=== PATIENT | female | born 1975 | race Caucasian/White ===

== ENCOUNTER → 2020-04-23 | Outpatient (CLI) | payer MEDICARE, OTHER ==
[~2020-04-23] MED LIST: ALBUTEROL2.5 MG/3 M INH; BEVESPI INH; BUMETANIDE2 MG PO; BUPRENORPHIN-N1 EACH SL; CARBAMAZEPINE100 M1 PO; CELEXA40 MG PO; CLARITIN10 MG PO; CLINDAMYCIN HC300 MG PO; HYDROCODON-ACE1 EAC6 PO; IBUPROFEN800 MG PO; IPRATROPIU0.2 MG/1 M INH; LASIX20 MG PO; LEVAQUIN750 MG PO; MIRTAZAPINE45 MG PO; MORGIDOX100 MG PO; NEURONTIN400 MG PO; NICOTINE PATCH1 EAC2 TOP; PANTOPRAZOLE SO40 MG PO; POTASSIUM CHLO10 ME1 PO; POTASSIUM CHLO10 ME2 PO; PREDNISONE 20 M20 MG PO; PREDNISONE10 MG PO; REMERON30 MG PO; SPIRIVA RESPIMAT4 GM INH; SUBOXONE 8 MG-1 EACH SL; SULFAMETHOXAZO1 EACH PO; TEGRETOL 200 M200 MG PO; TESSALON PERLE100 MG PO; TOPAMAX200 MG PO; TOPAMAX50 MG PO; TORADOL 10 MG T10 MG PO; VENTOLIN HFA 66.7 GM INH; VITAMIN C500 M4 PO; VITAMIN D21250 MCG PO; WELLBUTRIN XL300 M1 PO
== END ==
LOC: KOH-I 14:33
DX: M25.572 Pain in left ankle and joints of left foot (principal); S82.302A Unspecified fracture of lower end of left tibia, initial encounter for closed fracture; S82.892A Other fracture of left lower leg, initial encounter for closed fracture; W19.XXXA Unspecified fall, initial encounter
CPT/HCPCS: 73610

== ENCOUNTER → 2020-04-29 | Day surgery (SDC) | payer MEDICARE, OTHER ==
[2020-04-29 13:57] LABS: HEMOGLOBIN 15.5 gm/dl (12.3-15.3); RED BLOOD COUNT 4.75 M/UL (4.00-5.10); WHITE BLOOD COUNT 16.4 K/UL (4.5-11.0)
[2020-04-29 14:16] LABS: BUN/CREATININE RATIO 9 (0-10)
== END | disposition home or self-care (01) ==
LOC: OR 13:17
PROVIDERS: Podiatrist Foot & Ankle Surgery
DX: S82.842A Displaced bimalleolar fracture of left lower leg, initial encounter for closed fracture (principal); J45.909 Unspecified asthma, uncomplicated; F41.8 Other specified anxiety disorders; K21.9 Gastro-esophageal reflux disease without esophagitis; F17.210 Nicotine dependence, cigarettes, uncomplicated; I10 Essential (primary) hypertension; R56.9 Unspecified convulsions; Z82.5 Family history of asthma and other chronic lower respiratory diseases; Z79.899 Other long term (current) drug therapy; W01.0XXA Fall on same level from slipping, tripping and stumbling without subsequent striking against object, initial encounter
CPT/HCPCS: 36415; 80048; 85027

== ENCOUNTER → 2020-05-05 | Outpatient (CLI) | payer MEDICARE, OTHER ==
[2020-05-05 12:39] LABS: HEMOGLOBIN 14.4 gm/dl (12.3-15.3); RED BLOOD COUNT 4.46 M/UL (4.00-5.10)
[2020-05-05 12:59] LABS: BUN/CREATININE RATIO 9 (0-10)
== END ==
LOC: OPSV2 11:30
PROVIDERS: Podiatrist Foot & Ankle Surgery
DX: Z01.818 Encounter for other preprocedural examination (principal)
CPT/HCPCS: 36415; 80048; 82652; 85027

== ENCOUNTER → 2020-05-06 | Day surgery (SDC) | payer MEDICARE, OTHER | END | disposition home or self-care (01) | LOC: OR 05-01 07:45 | DX: S82.842A Displaced bimalleolar fracture of left lower leg, initial encounter for closed fracture (principal); S93.422A Sprain of deltoid ligament of left ankle, initial encounter; S93.492A Sprain of other ligament of left ankle, initial encounter; M25.372 Other instability, left ankle; J44.9 Chronic obstructive pulmonary disease, unspecified; F41.9 Anxiety disorder, unspecified; F32.9 Major depressive disorder, single episode, unspecified; K21.9 Gastro-esophageal reflux disease without esophagitis; G43.909 Migraine, unspecified, not intractable, without status migrainosus; F17.210 Nicotine dependence, cigarettes, uncomplicated; Z79.899 Other long term (current) drug therapy; W01.0XXA Fall on same level from slipping, tripping and stumbling without subsequent striking against object, initial encounter | CPT/HCPCS: 73610; 76000; C1713; C1769; J0690; J2001; J2250; J2405; J2704; J2795; J3010; J3370; J7120; Q4133 ==

== ENCOUNTER → 2020-05-14 | Outpatient (CLI) | payer MEDICARE, OTHER | LOC: KOH-I 09:28 | DX: S82.892D Other fracture of left lower leg, subsequent encounter for closed fracture with routine healing (principal) | CPT/HCPCS: 73610 ==

== ENCOUNTER → 2020-05-25 | Outpatient (CLI) | payer MEDICARE, OTHER | LOC: KOH-I 14:09 | DX: S82.842A Displaced bimalleolar fracture of left lower leg, initial encounter for closed fracture (principal) | CPT/HCPCS: 73610 ==

== ENCOUNTER 2020-06-01 15:00 | Inpatient (IN) | payer MEDICARE, OTHER ==
[~2020-06-01] VITALS: Ht 160 cm; Wt 72.6 kg
[~2020-06-01 15:00] MED LIST changes: -CLINDAMYCIN HC300 MG PO; -SULFAMETHOXAZO1 EACH PO; -VITAMIN C500 M4 PO
[2020-06-01] MEDS ORDERED: CLINDAMYCIN HC300 MG PO (17:41)
[2020-06-01] MEDS ORDERED: SULFAMETHOXAZO1 EACH PO (17:41)
[2020-06-01] MEDS ORDERED: VITAMIN C500 M4 PO (18:09)
[2020-06-01 19:14] LABS: HEMOGLOBIN 14.4 gm/dl (12.3-15.3); RED BLOOD COUNT 4.47 M/UL (4.00-5.10); WHITE BLOOD COUNT 20.8 K/UL (4.5-11.0)
[2020-06-01 19:36] LABS: BUN/CREATININE RATIO 9 (0-10)
[2020-06-03 05:32] LABS: HEMOGLOBIN 12.6 gm/dl (12.3-15.3)
[2020-06-03 05:44] LABS: RED BLOOD COUNT 3.99 M/UL (4.00-5.10); WHITE BLOOD COUNT 11.6 K/UL (4.5-11.0)
[2020-06-03 05:52] LABS: BUN/CREATININE RATIO 16 (0-10)
--- NOTE | 2020-06-03 12:11 | NUR ---
ASSESSED PT POST OP DRESSING ON LEFT FOOT. DRESSING CDI. PT REFUSED TO STAY ON SURGERY VITALS. PT INSISTED ON GOING OUTSIDE. SIGNIFICANT OTHER AT BEDSIDE PUSHED PT OUTSIDE IN HER WHEELCHAIR. WCCYNTHIA.
[2020-06-04 04:50] LABS: HEMOGLOBIN 12.7 gm/dl (12.3-15.3); RED BLOOD COUNT 4.02 M/UL (4.00-5.10); WHITE BLOOD COUNT 12.2 K/UL (4.5-11.0)
[2020-06-04 05:07] LABS: BUN/CREATININE RATIO 12 (0-10)
[2020-06-05 04:24] LABS: BUN/CREATININE RATIO 11 (0-10)
[2020-06-05 04:25] LABS: HEMOGLOBIN 12.7 gm/dl (12.3-15.3); RED BLOOD COUNT 4.07 M/UL (4.00-5.10); WHITE BLOOD COUNT 10.9 K/UL (4.5-11.0)
--- NOTE | 2020-06-05 15:03 | NUR ---
patient very concerned DR. MÉNDEZ WOULD NOT SEND HER HOME WITH PAIN MEDS. NURSE REASSURED PATIENT DOCTOR WOULD TAKE CARE OF THEM. NURSE CALLED DOCTOR MÉNDEZ WHILE WORKING ON DISCHARGE AFTER NOTICING NO NEW PAIN PERSCRIPTIONS INCLUDED IN THE DISCHARGE. DOCTOR MÉNDEZ WAS CALLED AND SAID HE HAD BEEN WRITING HER PAIN MEDS SINCE SHE BROKE HER ANKLE HE EXPRESSED CONCERN ABOUT "WRITING HER DOUBLE" AND SAID HE WOULD SEE HER AT FOLLOW UP WHEN THE NURSE POINTED OUT THE PATIENT DID HAVE HYDROCODONE ON HER CONTINUE TAKING MED LIST.
== END 2020-06-05 15:46 | disposition home or self-care (01) | DRG 857 ==
LOC: M/S 15:00
PROVIDERS: Internal Medicine; Podiatrist Foot & Ankle Surgery; ADMIT Internal Medicine Infectious Disease
PROC: 0HRNXK3 Replacement of Left Foot Skin with Nonautologous Tissue Substitute, Full Thickness, External Approach (ICD-10-PCS; 2020-06-03)
PROC: 0JBR0ZZ Excision of Left Foot Subcutaneous Tissue and Fascia, Open Approach (ICD-10-PCS; principal; 2020-06-03 17:15)
DX: T81.49XA Infection following a procedure, other surgical site, initial encounter (principal); L03.116 Cellulitis of left lower limb; Z96.662 Presence of left artificial ankle joint; J44.9 Chronic obstructive pulmonary disease, unspecified; I10 Essential (primary) hypertension; F32.9 Major depressive disorder, single episode, unspecified; F12.10 Cannabis abuse, uncomplicated; F41.9 Anxiety disorder, unspecified; Y83.8 Other surgical procedures as the cause of abnormal reaction of the patient, or of later complication, without mention of misadventure at the time of the procedure; E11.9 Type 2 diabetes mellitus without complications; G47.00 Insomnia, unspecified; G40.909 Epilepsy, unspecified, not intractable, without status epilepticus; I25.2 Old myocardial infarction; Z87.01 Personal history of pneumonia (recurrent); Z72.0 Tobacco use; Z98.51 Tubal ligation status; Z91.19 Patient's noncompliance with other medical treatment and regimen; Y92.89 Other specified places as the place of occurrence of the external cause
CPT/HCPCS: 36415; 73610; 80048; 80053; 80202; 80307; 83735; 84443; 85025; 85610; 86140; 87070; 87205; 94640; 94760; C1751; J0696; J0878; J1335; J1650; J2001; J2185; J2250; J2405; J2543; J2704; J2795; J3010; J3370; J7050; J7070; J7120; Q4133

== ENCOUNTER → 2020-06-01 | Outpatient (CLI) | payer MEDICARE, OTHER | LOC: KOH-I 13:40 | DX: Z53.8 Procedure and treatment not carried out for other reasons (principal) | CPT/HCPCS: 73610 ==

== ENCOUNTER → 2020-06-18 | Outpatient (CLI) | payer MEDICARE, OTHER ==
[~2020-06-18] MED LIST changes: +CLINDAMYCIN HC300 MG PO; +SULFAMETHOXAZO1 EACH PO; +VITAMIN C500 M4 PO
== END ==
LOC: KOH-I 12:53
DX: S82.842A Displaced bimalleolar fracture of left lower leg, initial encounter for closed fracture (principal); T81.33XA Disruption of traumatic injury wound repair, initial encounter
CPT/HCPCS: 73610

== ENCOUNTER → 2020-06-29 | Outpatient (CLI) | payer MEDICARE, OTHER | LOC: KOH-I 13:23 | DX: S82.842A Displaced bimalleolar fracture of left lower leg, initial encounter for closed fracture (principal); Z47.89 Encounter for other orthopedic aftercare | CPT/HCPCS: 73610 ==

== ENCOUNTER → 2020-07-16 | Outpatient (CLI) | payer MEDICARE, OTHER | LOC: KOH-I 12:56 | DX: S82.892A Other fracture of left lower leg, initial encounter for closed fracture (principal) | CPT/HCPCS: 73610 ==

== ENCOUNTER → 2020-08-10 | Outpatient (CLI) | payer MEDICARE, OTHER | LOC: KOH-I 13:27 | DX: S82.892D Other fracture of left lower leg, subsequent encounter for closed fracture with routine healing (principal) | CPT/HCPCS: 73610 ==

== ENCOUNTER → 2020-11-16 | Outpatient (CLI) | payer MEDICARE, OTHER | LOC: KOH-I 14:08 | DX: S82.892D Other fracture of left lower leg, subsequent encounter for closed fracture with routine healing (principal); M79.89 Other specified soft tissue disorders | CPT/HCPCS: 73610 ==

== ENCOUNTER → 2020-12-14 | Outpatient (CLI) | payer MEDICARE, OTHER | LOC: KOH-I 11-25 10:30 | DX: S82.832K Other fracture of upper and lower end of left fibula, subsequent encounter for closed fracture with nonunion (principal); S82.302D Unspecified fracture of lower end of left tibia, subsequent encounter for closed fracture with routine healing | CPT/HCPCS: 73700 ==

== ENCOUNTER → 2021-01-28 | Outpatient (CLI) | payer MEDICARE, OTHER ==
[~2021-01-28] MED LIST changes: +ALBUTEROL; +BREZTRI; -NEURONTIN400 MG PO; +NEURONTIN800 MG PO
== END ==
LOC: OPSV2 11:22
DX: Z01.818 Encounter for other preprocedural examination (principal); S92.002K Unspecified fracture of left calcaneus, subsequent encounter for fracture with nonunion; T84.84XA Pain due to internal orthopedic prosthetic devices, implants and grafts, initial encounter
CPT/HCPCS: 71046

== ENCOUNTER → 2021-02-02 | Outpatient (CLI) | payer MEDICARE, OTHER | LOC: KOH-I 09:40 | DX: M79.672 Pain in left foot (principal); M25.572 Pain in left ankle and joints of left foot; Z96.662 Presence of left artificial ankle joint; M85.872 Other specified disorders of bone density and structure, left ankle and foot; R93.7 Abnormal findings on diagnostic imaging of other parts of musculoskeletal system | CPT/HCPCS: 73610; 73630 ==

== ENCOUNTER 2021-02-05 06:13 | Day surgery (SDC) | payer MEDICARE, OTHER, MEDICAID ==
[~2021-02-05] VITALS: Ht 160 cm; Wt 72.6 kg
[~2021-02-05 06:13] MED LIST changes: -WELLBUTRIN XL300 M1 PO; +WELLBUTRIN XL300 MG PO
[2021-02-05] MEDS ORDERED: PROAIR HFA8.5 GM INH (17:27)
[2021-02-05] MEDS ORDERED: VITAMIN C 500500 MG PO (17:27)
[2021-02-05] MEDS ORDERED: IBU800 MG PO (17:28)
[2021-02-05] MEDS ORDERED: MUCUS RELIEF600 MG PO (17:28)
[2021-02-05] MEDS ORDERED: BENZONATATE200 MG PO (17:28)
[2021-02-05] MEDS ORDERED: LORATADINE10 MG PO (17:29)
[2021-02-05] MEDS ORDERED: PROTONIX 40 MG40 M1 PO (17:29)
[2021-02-05] MEDS ORDERED: MIRTAZAPINE30 MG PO (17:29)
[2021-02-05] MEDS ORDERED: PREDNISONE10 MG PO (17:30)
[2021-02-05] MEDS ORDERED: POTASSIUM CHLO10 ME2 PO (17:30)
[2021-02-05] MEDS ORDERED: TOPAMAX200 MG PO (17:30)
[2021-02-05] MEDS ORDERED: IPRAT-ALBUT 0.5-3 ML INH (17:31)
[2021-02-05] MEDS ORDERED: VITAMIN B-121000 MCG PO (17:31)
[2021-02-05] MEDS ORDERED: MULTIVITAMIN1 EACH PO (17:32)
[2021-02-05] MEDS ORDERED: CLINDAMYCIN HC300 MG PO (17:33)
[2021-02-06 03:34] LABS: HEMOGLOBIN 13.7 gm/dl (12.3-15.3); RED BLOOD COUNT 4.34 M/UL (4.00-5.10); WHITE BLOOD COUNT 15.5 K/UL (4.5-11.0)
[2021-02-06 04:13] LABS: BUN/CREATININE RATIO 15 (0-10)
== END 2021-02-06 16:50 | disposition home or self-care (01) ==
LOC: M/S 06:13 → OR 06:13 → M/S 16:29 → OR 19:00 → M/S 02-06 07:12 → OR 02-06 07:12
PROVIDERS: Internal Medicine; Podiatrist Foot & Ankle Surgery
PROC: 0SGJ04Z Fusion of Left Tarsal Joint with Internal Fixation Device, Open Approach (ICD-10-PCS; principal; 2021-02-05 07:30)
PROC: 0SGG04Z Fusion of Left Ankle Joint with Internal Fixation Device, Open Approach (ICD-10-PCS; principal; 2021-02-05 07:30)
PROC: 3E0T3BZ Introduction of Anesthetic Agent into Peripheral Nerves and Plexi, Percutaneous Approach (ICD-10-PCS; principal; 2021-02-05 07:30)
PROC: 0SPG04Z Removal of Internal Fixation Device from Left Ankle Joint, Open Approach (ICD-10-PCS; principal; 2021-02-05 07:30)
DX: T84.84XA Pain due to internal orthopedic prosthetic devices, implants and grafts, initial encounter (principal); M19.172 Post-traumatic osteoarthritis, left ankle and foot; M21.072 Valgus deformity, not elsewhere classified, left ankle; S82.892K Other fracture of left lower leg, subsequent encounter for closed fracture with nonunion; E87.6 Hypokalemia; F41.9 Anxiety disorder, unspecified; J44.9 Chronic obstructive pulmonary disease, unspecified; G89.29 Other chronic pain; M54.9 Dorsalgia, unspecified; F17.210 Nicotine dependence, cigarettes, uncomplicated; K21.9 Gastro-esophageal reflux disease without esophagitis; M79.7 Fibromyalgia; Z20.822 Contact with and (suspected) exposure to COVID-19; Z99.81 Dependence on supplemental oxygen; Z79.899 Other long term (current) drug therapy; Z91.19 Patient's noncompliance with other medical treatment and regimen; X58.XXXD Exposure to other specified factors, subsequent encounter; Y83.1 Surgical operation with implant of artificial internal device as the cause of abnormal reaction of the patient, or of later complication, without mention of misadventure at the time of the procedure
CPT/HCPCS: 36415; 73610; 73650; 76000; 80048; 83735; 85025; 94640; 94664; 94760; C1762; J0171; J0690; J1100; J1650; J1885; J2250; J2405; J2704; J2795; J2930; J3010; J3370; J7120

== ENCOUNTER → 2021-03-02 | Outpatient (CLI) | payer MEDICARE, OTHER ==
[~2021-03-02] MED LIST changes: +BENZONATATE200 MG PO; +IBU800 MG PO; +IPRAT-ALBUT 0.5-3 ML INH; +LORATADINE10 MG PO; +MIRTAZAPINE30 MG PO; +MUCUS RELIEF600 MG PO; +MULTIVITAMIN1 EACH PO; +PROAIR HFA8.5 GM INH; +PROTONIX 40 MG40 M1 PO; +VITAMIN B-121000 MCG PO; +VITAMIN C 500500 MG PO
== END ==
LOC: KOH-I 13:45
DX: M25.572 Pain in left ankle and joints of left foot (principal); Z96.662 Presence of left artificial ankle joint
CPT/HCPCS: 73610

== ENCOUNTER → 2021-03-16 | Outpatient (CLI) | payer MEDICARE, OTHER | LOC: KOH-I 13:10 | DX: M25.572 Pain in left ankle and joints of left foot (principal); Z96.662 Presence of left artificial ankle joint | CPT/HCPCS: 73610 ==

== ENCOUNTER → 2021-03-30 | Outpatient (CLI) | payer MEDICARE, OTHER | LOC: KOH-I 14:20 | DX: M25.572 Pain in left ankle and joints of left foot (principal); Z96.662 Presence of left artificial ankle joint; M79.89 Other specified soft tissue disorders | CPT/HCPCS: 73610 ==

== ENCOUNTER → 2021-04-15 | Outpatient (CLI) | payer MEDICARE, OTHER | LOC: KOH-I 13:19 | DX: M25.572 Pain in left ankle and joints of left foot (principal); Z96.662 Presence of left artificial ankle joint | CPT/HCPCS: 73610 ==

== ENCOUNTER → 2021-05-17 | Outpatient (CLI) | payer MEDICARE, OTHER | LOC: KOH-I 15:22 | DX: M25.572 Pain in left ankle and joints of left foot (principal) | CPT/HCPCS: 73610 ==

== ENCOUNTER → 2021-06-21 | Outpatient (CLI) | payer MEDICARE, OTHER | LOC: KOH-I 13:04 | DX: S82.892D Other fracture of left lower leg, subsequent encounter for closed fracture with routine healing (principal) | CPT/HCPCS: 73610 ==